=== PATIENT | male | born 1995 | race Caucasian/White ===

== ENCOUNTER 2017-01-27 12:25 | Emergency (ER) | payer MEDICAID, OTHER ==
[~2017-01-27] VITALS: Ht 185.4 cm; Wt 81.7 kg
[2017-01-27 12:43] VITALS: BP 134/85
--- NOTE | 2017-01-27 12:48 | NUR ---
PT AMBULATED TO BED 3.
--- NOTE | 2017-01-27 12:52 | NUR ---
PATIENT PRESENTS TO ED WITH C/O LLQ SHARP PAIN WITH AGGRESSIVE MOVEMENT X LAST NIGHT LOOSE STOOLS X 2 EPISODES DENIES BRIGHT RED BLOOD OR BLACK STOOLS DENIES F/C HX--DENIES RX---NONE; DENIES N/V; SKIN IS PINK/WARM/DRY; AAOX4 WITH EVEN AND STEADY GAIT; LUNGS CLEAR BL; HR EVEN AND REGULAR; PT DENIES ANY FEVER, CP, SOB, OR COUGH AT THIS TIME; PATIENT STATES PAIN OF 6/10 AT THIS TIME; VSS; PATIENT POSITIONED FOR COMFORT; HOB ELEVATED; BEDRAILS UP X2; BED DOWN. ER MD MADE AWARE OF PT STATUS.
--- NOTE | 2017-01-27 13:05 | NUR ---
DR HUNTER EVALUATING AAO PAT AT BEDSIDE
[2017-01-27] MEDS ORDERED: KETOROLAC 30 MG/ML VIAL IM ONE (13:15)
[2017-01-27 13:32] LABS: BASOPHILS # (AUTO) 0.4 K/uL (0.00-0.22); BASOPHILS % (AUTO) 4.7 % (0.0-2.0); EOSINOPHILS % (AUTO) 0.5 % (0.0-4.0); HEMATOCRIT 45.7 % (36-52); HEMOGLOBIN 15.1 g/dL (12.0-18.0); LYMPHOCYTES % (AUTO) 13.3 % (20.5-51.1); MEAN CORPUSCULAR HEMOGLOBIN 28 pg (27-31); MEAN CORPUSCULAR HGB CONC 33 g/dL (33-37); MEAN CORPUSCULAR VOLUME 83 fL (80-94); MONOCYTES # (AUTO) 0.2 K/uL (0.8-1.0); NEUTROPHILS # (AUTO) 5.9 K/uL (1.8-7.7); NEUTROPHILS % (AUTO) 78.5 % (42.2-75.2); PLATELET COUNT (AUTO) 248 K/uL (140-450); RED BLOOD CELL COUNT(AUTO) 5.48 MIL/uL (4.20-6.10); RED CELL DISTRIBUTION WIDTH 12.8 % (11.6-13.7); WHITE BLOOD COUNT (AUTO) 7.5 K/uL (4.8-10.8)
[2017-01-27 13:47] LABS: ALBUMIN 4.4 g/dL (3.4-5.0); ANION GAP 12.7 (8-16); CARBON DIOXIDE 29.7 mmol/L (21-32); CREATININE 0.9 mg/dL (0.7-1.3); POTASSIUM 4.4 mmol/L (3.5-5.1); TOTAL BILIRUBIN 0.5 mg/dL (0.0-1.0)
[2017-01-27 14:56] VITALS: BP 126/80
[2017-01-27 15:08] LABS: APPEARANCE,URINE CLEAR (CLEAR); BILIRUBIN,URINE NEGATIVE (NEGATIVE); BLOOD, URINE NEGATIVE (NEGATIVE); COLOR,URINE YELLOW (YELLOW); LEUKOCYTE ESTERASE ,URINE NEGATIVE (NEGATIVE); NITRITE, URINE NEGATIVE (NEGATIVE); UGLUCOSE NEGATIVE (NEGATIVE)
== END 2017-01-27 14:56 | disposition home or self-care (01) ==
LOC: MED 12:25
DX: K59.00 Constipation, unspecified (principal)
CPT/HCPCS: 36415; 74000; 80053; 81003; 83690; 85025; 96372; 99285; J1885; Q0092